=== PATIENT | female | born 1960 ===

== ENCOUNTER 2019-10-31 09:44 | Outpatient (REF) | payer BC, SELFPAY ==
[2019-10-31 21:45] LABS: ALT 28 U/L (14-59); AST 17 U/L (15-37); Albumin 4.1 g/dL (3.4-5.0); Alkaline Phosphatase 73 U/L (46-116); Anion Gap 3.2 mmol/L (3-11); BUN 15 mg/dL (7-18); Bilirubin, Total 0.5 mg/dL (0.2-1.0); CO2 29.8 mmol/L (21.0-32.0); CREATININE 0.71 mg/dL (0.55-1.02); Calcium 9.3 mg/dL (8.5-10.1); Chloride 109 mmol/L (98-107); Glucose 84 mg/dL (74-106); Magnesium 1.9 mg/dL (1.8-2.4); Potassium 4.3 mmol/L (3.5-5.1); Sodium 142 mmol/L (136-145); Total Protein 6.7 g/dL (6.4-8.2); Vitamin B12 447 pg/mL (193-986)
[2019-11-02 11:24] LABS: HIV-1/2 Ag & Ab Screen Negative (Negative)
[2019-11-02 12:57] LABS: Hepatitis C Ab w Rflx HCV PCR Negative (Negative)
== END 2019-10-31 10:04 ==
LOC: NCHCN 09:44
PROVIDERS: Visit Provider Nurse Practitioner Family
DX: Z00.00 Encounter for general adult medical examination without abnormal findings (principal); F41.8 Other specified anxiety disorders; R41.3 Other amnesia; R42 Dizziness and giddiness; Z11.4 Encounter for screening for human immunodeficiency virus [HIV]; Z11.59 Encounter for screening for other viral diseases; M54.2 Cervicalgia
CPT/HCPCS: 80053; 86803; 87389; 82607; 83735

== ENCOUNTER 2020-11-01 15:33 | Outpatient (REF) | payer MEDICAID, SELFPAY ==
[2020-11-01 21:43] LABS: Calculated LDL 63 mg/dL (<100); Cholesterol 144 mg/dL (<200); HDL Cholesterol 53 mg/dL (40-60); TSH (W/Ref FT4) 2.45 uIU/mL (0.36-3.74); Triglyceride 143 mg/dL (<150)
== END 2020-11-02 15:34 | disposition home or self-care (01) ==
LOC: NCHCN 15:33
PROVIDERS: Visit Provider Nurse Practitioner Family
DX: Z00.00 Encounter for general adult medical examination without abnormal findings (principal); E78.5 Hyperlipidemia, unspecified
CPT/HCPCS: 80061; 84443

== ENCOUNTER 2022-07-15 14:29 | Outpatient (REF) | payer MEDICAID, SELFPAY ==
[2022-07-15 14:04] LABS: HGB 13.6 g/dL (11.2-15.7); MCH 29.6 pg (27.0-33.0); MCV 87 fL (80-95); MPV 9.5 fL (8.0-11.0); Platelet Count 246 10^3/uL (130-400); RBC 4.59 10^6/uL (3.93-5.22); RDW 12.1 % (11.7-14.6); RDW-SD 38.9 fL; WBC 5.41 10^3/uL (4.4-10.8)
[2022-07-15 14:43] LABS: ALT 28 U/L (14-59); AST 19 U/L (15-37); Albumin 4.3 g/dL (3.4-5.0); Alkaline Phosphatase 66 U/L (46-116); Anion Gap 9.1 mmol/L (3-11); BUN 13 mg/dL (7-18); Bilirubin, Total 0.6 mg/dL (0.2-1.0); CO2 29.9 mmol/L (21.0-32.0); CREATININE 0.8 mg/dL (0.55-1.02); Calculated LDL 91 mg/dL (<100); Chloride 105 mmol/L (98-107); Cholesterol 173 mg/dL (<200); Estimated GFR 84.82 (mL/min/1.73m2); Glucose 92 mg/dL (74-106); HDL Cholesterol 65 mg/dL (40-60); Potassium 4.3 mmol/L (3.5-5.1); Sodium 144 mmol/L (136-145); Triglyceride 89 mg/dL (<150)
== END 2022-07-15 14:30 | disposition home or self-care (01) ==
LOC: NCHCN 14:29
PROVIDERS: Visit Provider Nurse Practitioner Family
DX: E78.5 Hyperlipidemia, unspecified (principal)
CPT/HCPCS: 80053; 80061; 85027

== ENCOUNTER 2024-07-25 19:00 | Outpatient (REF) | payer OTHER, SELFPAY ==
[2024-07-25 16:53] LABS: ALT 32 U/L (14-59); AST 21 U/L (15-37); Albumin 4.1 g/dL (3.4-5.0); Alkaline Phosphatase 77 U/L (46-116); Anion Gap 6.4 mmol/L (3-11); BUN 13 mg/dL (7-18); Bilirubin, Total 0.6 mg/dL (0.2-1.0); CO2 28.6 mmol/L (21.0-32.0); CREATININE 0.8 mg/dL (0.55-1.02); Calcium 9.4 mg/dL (8.5-10.1); Calculated LDL 78 mg/dL (<100); Chloride 106 mmol/L (98-107); Cholesterol 168 mg/dL (<200); Estimated GFR 83.78 (mL/min/1.73m2); Glucose 155 mg/dL (74-106); HDL Cholesterol 69 mg/dL (>or=50); Sodium 141 mmol/L (136-145); Total Protein 6.7 g/dL (6.4-8.2); Triglyceride 106 mg/dL (<150)
== END 2024-07-25 19:01 | disposition home or self-care (01) ==
LOC: NCHCN 19:00
PROVIDERS: PCP Nurse Practitioner Family; Visit Provider Nurse Practitioner Family
DX: E78.5 Hyperlipidemia, unspecified (principal)
CPT/HCPCS: 80053; 80061